=== PATIENT | male | born 1995 | race Caucasian/White ===

== ENCOUNTER 2022-04-24 11:59 | Outpatient (CLI) | payer OTHER | END 2022-04-24 12:38 | disposition home or self-care (01) | LOC: LAB 11:59 | PROVIDERS: ATTEND General Practice | DX: Z20.822 Contact with and (suspected) exposure to COVID-19 (principal) ==

== ENCOUNTER 2025-02-18 01:35 | Emergency (ER) | payer OTHER ==
[~2025-02-18] VITALS: Ht 170.2 cm; Wt 80.7 kg
[2025-02-18] MEDS ORDERED: ZOLOFT25 MG PO (01:41)
[2025-02-18] MEDS ORDERED: FAMOTIDINE/PF 20 MG/2 ML VIAL IV PUSH STA (02:27)
[2025-02-18] MEDS ORDERED: FAMOTIDINE/PF 20 MG/2 ML VIAL ONE (02:28)
[2025-02-18] MEDS ORDERED: 0.9 % SODIUM CHLORIDE 1,000 ML IV ONE (02:30)
== END 2025-02-18 04:35 ==
LOC: ER 02:32
DX: F10.929 Alcohol use, unspecified with intoxication, unspecified (principal)